=== PATIENT | female | born 1995 | race Caucasian/White ===

== ENCOUNTER 2024-05-14 21:50 | Emergency (ER) | payer SELFPAY ==
[~2024-05-14] VITALS: Ht 162.6 cm; Wt 63.5 kg
[2024-05-14] MEDS ORDERED: SODIUM CHLORIDE 0.9% 1,000 ML IV STA (22:22)
[2024-05-14] MEDS ORDERED: TAMSULOSIN HCL 0.4 MG CAP PO STA (22:22)
[2024-05-14] MEDS ORDERED: PROMETHAZINE HCL 25 MG/ML AMP IV ONE (22:25)
[2024-05-14] MEDS ORDERED: KETOROLAC TROMETHAMINE 30 MG/ML SDV IV ONE (22:25)
[2024-05-14 22:45] LABS: URINE BILIRUBIN - DIPSTICK Negative (NEGATIVE); URINE BLOOD DIPSTICK Large (NEGATIVE); URINE COLOR Red; URINE GLUCOSE - DIPSTICK Negative (NEGATIVE); URINE KETONE Negative (NEGATIVE); URINE LEUK ESTERASE Trace (NEGATIVE); URINE NITRITE - DIPSTICK Negative (Negative); URINE PH 5.5 (4.5-8.0); URINE PROTEIN - DIPSTICK 30 mg/dL (NEG-TRACE); URINE SPECIFIC GRAVITY >=1.030; URINE UROBILINOGEN - DIPSTICK 0.2 E.U./dL (0.2); URINE WBC 0-2 WBC/hpf (0-5)
[2024-05-14 22:46] LABS: URINE RBC >100 RBC/hpf (0-5)
[2024-05-14 22:47] LABS: BASO% 0.5 % (0-3); EOS% 2.9 % (0-8); HEMATOCRIT 35.4 % (37.0-47.0); HEMOGLOBIN 11.6 g/dl (12.0-16.0); IMMATURE GRANULOCYTES 0.3 % (0.0-5.0); LYMPH% 18.7 % (15-41); MEAN CELL VOLUME 85.7 fL CALC (80.0-100.0); MEAN CORPUSCULAR HGB 28.1 pG CALC (26.0-32.0); MEAN CORPUSCULAR HGB CONC 32.8 g/dL CAL (32.0-36.0); MONO% 6.9 % (2-13); NEUT# 7.56 thou/uL (2.00-7.15); NEUT% 70.7 % (42-76); RED BLOOD COUNT 4.13 mill/uL (4.20-5.60); RED CELL DISTRI WIDTH 15.1 % (11.5-15.5)
[2024-05-14 23:03] LABS: BILIRUBIN, TOTAL 0.5 mg/dL (0.02-1.3); CREATININE 0.7 mg/dL (0.5-1.0); POTASSIUM 3.6 mmol/l (3.5-5.1); TOTAL PROTEIN 8.7 g/dL (6.3-8.2)
[2024-05-14] MEDS ORDERED: Acetaminophen 300 MG/Codeine 30 MG/COMBO PO ONE (23:40)
[2024-05-15 01:12] VITALS: BP 157/118
[2024-05-15 01:15] VITALS: BP 150/120
[2024-05-15] MEDS ORDERED: cloNIDine HCL 0.1 MG/TAB PO ONE (01:15)
[2024-05-15 01:31] VITALS: BP 143/121
[2024-05-15] MEDS ORDERED: PERCOGESI1 PO (01:37)
[2024-05-15] MEDS ORDERED: ORPHENADRINE100 MG PO (01:37)
[2024-05-15 01:46] VITALS: BP 201/135
[2024-05-15 01:53] VITALS: BP 171/122
== END 2024-05-15 02:10 | disposition home or self-care (01) | DRG 563 ==
LOC: ED 21:50
PROVIDERS: Family Medicine
DX: S39.012A Strain of muscle, fascia and tendon of lower back, initial encounter (principal); R31.9 Hematuria, unspecified; I10 Essential (primary) hypertension; X58.XXXA Exposure to other specified factors, initial encounter; Z87.442 Personal history of urinary calculi